=== PATIENT | male | born 1970 | race Caucasian/White ===

== ENCOUNTER 2022-11-25 16:09 | Inpatient (IN) | payer OTHER ==
[~2022-11-25] VITALS: Ht 180.3 cm; Wt 88.2 kg
[2022-11-25 16:00] VITALS: BP 129/68; PULSE 88; TEMP 98
--- NOTE | 2022-11-25 17:50 | NUR ---
PATIENT AND FAMILY ORIENTED TO ROOM. PATIENT ARRIVED WITH IV TO LEFT AC. PATIENT DENIES ANY PAIN AT THIS TIME. ASSESSMENT PERFORMED. INTAKE COMPLETE. PATIENT RESTING IN BED WITH NO FURTHER COMPLAINTS.
[2022-11-25 19:54] VITALS: BP 127/72; PULSE 90; TEMP 99.9
--- NOTE | 2022-11-25 20:00 | NUR ---
PT INDEPENDENT IN ROOM. CONNECTED IVF TO LAC SITE, INFUSING WITHOUT PROBLEM. IV ANTIBIOTIC INFUSING AT THIS TIME. PT DENIES NEED FOR PAIN MEDS. IS ON A CLEAR LIQUID DIET, NO PLAN FOR SURGERY AT THIS TIME.
[2022-11-26] VITALS (8 sets, daily range): BP systolic 110–131; BP diastolic 55–62; PULSE 77–101; TEMP 99.1–103.2
--- NOTE | 2022-11-26 01:10 | NUR ---
PT HAS LIQE=689.2, MEDICATED WITH TYLENOL 650MG PO AT THIS TIME.
--- NOTE | 2022-11-26 04:00 | NUR ---
TEMP=99.1. DENIES NEED FOR PAIN MEDS. IVF CONTINUE.
--- NOTE | 2022-11-26 05:49 | NUR ---
PT RESTING IN BED. REMAINS ON CLEAR LIQUIDS. IVF CONTINUE.
[2022-11-26 06:50] LABS: HEMOGLOBIN 12.1 g/dl (13.5-18.0); MEAN CELL VOLUME 95 fl (80.0-100.0); MEAN CORPUSCULAR HEMOGLOBIN 32 pg (27-31); MEAN CORPUSCULAR HGB CONC 33 g/dl (33.0-37.0); MEAN PLATELET VOLUME 10.6 fl (7.4-10.4); PLATELET COUNT 234 K/mm3 (130-400); RED BLOOD COUNT 3.82 M/mm3 (4.20-5.60); REDCELL DISTRIBUTION WIDTH-CV 11.6 % (11.5-14.5)
[2022-11-26 07:00] LABS: CALCIUM 8.4 mg/dL (8.4-10.2); CREATININE, serum 0.99 mg/dL (0.72-1.25); POTASSIUM 3.9 mmol/L (3.5-4.5)
--- NOTE | 2022-11-26 07:12 | NUR ---
Shift report received from retail shift leader RN.
[2022-11-26 07:15] LABS: HEMATOCRIT 36.3 % (42.0-52.0)
--- NOTE | 2022-11-26 07:26 | NUR ---
Pt awake and watching television while resting supine in bed. Pt denies nausea, abd. pain, and general pain/discomfort. IVF infusing to left ac site w/out sx of infiltration. Pt would like to shower today - bathing supplies placed in room. Pt denies additional needs. Call light is in his reach.
[2022-11-26 07:34] LABS: BAND 2 % (0-10); BASOPHIL 1 % (0-2); EOSINOPHIL 1 % (0-4); LYMPHOCYTE 11 % (20.0-51.0); NEUTROPHILS 83 % (42.0-75.2); PLATELET ESTIMATE NORMAL (NORMAL)
--- NOTE | 2022-11-26 07:41 | NUR ---
WBC 21. Dr. Martinez notified
--- NOTE | 2022-11-26 13:35 | NUR ---
Pt resting supine in bed. Significant other is at the bedside. Pt reports pain at 2-3/10. Denies nausea. Diet advanced to low fiber and he is waiting for his lunch to arrive. Pt showered this morning independently. He denies additional needs. Call light is in his reach.
--- NOTE | 2022-11-26 13:57 | NUR ---
SW presented to patient room to complete intake. Patient provides that he lives in [facility] alone. Next of kin or point of contact is his mother Merline Christianson [phone] or life partner Laura Solitario [phone]. Patient provides that he does not utilize DME, is independent with ADL's and does not utilize any HH services at this time. PCP is Dr. Johnson, and pharmacy is [facility] or [facility]. Patient states that he does not have anyone appointed as DPOA/HC and does not wish to appoint anyone at this time. DC plan is to return to is come upon discharge. SW will continue to follow. DC plan: home
--- NOTE | 2022-11-26 15:27 | NUR ---
Pt resting supine in bed. He reports feeling "warm". Temp 103.[address] Jason aware. Okay to give PRN Tylenol. Will continue to monitor.
--- NOTE | 2022-11-26 20:00 | NUR ---
PT IN BED, S.O AT BEDSIDE. IV ANTIBIOTIC CONNECTED TO LAC SITE, INFUSING WITHOUT PROBLEM. PT DENIES PAIN REQUIRING PAIN MEDS AT THIS TIME. INDEPENDENT IN ROOM. T=99.6.
--- NOTE | 2022-11-26 21:00 | NUR ---
PT DENIES NEEDS, RESTING IN BED.
--- NOTE | 2022-11-27 00:23 | NUR ---
PT HAS BXIK=897.6, TYLENOL 650MG GIVEN.
[2022-11-27 01:35] VITALS: TEMP 100.5
--- NOTE | 2022-11-27 01:35 | NUR ---
T=100.5. IV ANTIBIOTIC INFUSING WITHOUT PROBLEM.
--- NOTE | 2022-11-27 03:00 | NUR ---
Patient care, medication administration and nursing documentation occurred during a Daylight Savings Time Change.
[2022-11-27 03:51] VITALS: BP 113/65; PULSE 80; TEMP 98.1
--- NOTE | 2022-11-27 04:00 | NUR ---
TEMP=98.1.
[2022-11-27 06:54] LABS: BASO # 0.1 K/mm3 (0.0-0.2); BASO % 0.3 % (0.0-2.0); EOS # 0.1 K/mm3 (0.0-0.7); EOS % 0.3 % (0.0-4.0); GRAN # 15.9 K/mm3 (1.4-6.5); GRAN % 82.6 % (42.2-75.2); HEMATOCRIT 35.7 % (42.0-52.0); HEMOGLOBIN 12.1 g/dl (13.5-18.0); LYMPH # 1.6 K/mm3 (1.2-3.4); LYMPH % 8.2 % (20.0-51.0); MEAN CELL VOLUME 92 fl (80.0-100.0); MEAN CORPUSCULAR HEMOGLOBIN 31 pg (27-31); MEAN CORPUSCULAR HGB CONC 34 g/dl (33.0-37.0); MEAN PLATELET VOLUME 10.7 fl (7.4-10.4); MONO # 1.5 K/mm3 (0.1-0.6); MONO % 7.8 % (1.7-9.3); PLATELET COUNT 234 K/mm3 (130-400); RED BLOOD COUNT 3.87 M/mm3 (4.20-5.60); REDCELL DISTRIBUTION WIDTH-CV 11.5 % (11.5-14.5)
[2022-11-27 08:12] VITALS: BP 120/72; PULSE 82; TEMP 99.9
--- NOTE | 2022-11-27 08:54 | NUR ---
PATIENT ALERT AND ORIENTED X4. VSS. PATIENT HERE FOR RUPTURED APPY. PATIENT REPORTS PAIN 1/10 IN RLQ. UNASYN RUNNING IN LEFT AC. PATIENT TOLERATING LOW FIBER. REPORTS PASSING SOME GAS THIS AM. PATIENT REPORTS THE NEED TO HAVE A BM. WILL FOLLOW UP WITH THAT. CALL LIGHT IN REACH.
[2022-11-27 12:25] VITALS: BP 119/58; PULSE 84; TEMP 100.4
[2022-11-27 16:56] VITALS: BP 109/65; PULSE 78; TEMP 98.9
[2022-11-27 20:31] VITALS: BP 123/62; PULSE 96; TEMP 98.8
--- NOTE | 2022-11-27 21:00 | NUR ---
PT INDEPENDENT IN ROOM. IVF TO LAC INFUSING WITHOUT PROBLEM. DENIES PAIN. WILL BE NPO AT MIDNIGHT, PT AWARE.
[2022-11-28] VITALS (7 sets, daily range): BP systolic 96–117; BP diastolic 47–75; PULSE 59–94; TEMP 97.8–99
--- NOTE | 2022-11-28 01:30 | NUR ---
PT AWAKE, UP TO BATHROOM. LOW GRADE TEMPS THIS SHIFT. PT NPO.
[2022-11-28 06:43] LABS: BASO # 0.1 K/mm3 (0.0-0.2); BASO % 0.4 % (0.0-2.0); EOS # 0.2 K/mm3 (0.0-0.7); EOS % 1.2 % (0.0-4.0); GRAN # 10.3 K/mm3 (1.4-6.5); GRAN % 74.6 % (42.2-75.2); HEMOGLOBIN 11.7 g/dl (13.5-18.0); LYMPH % 14.5 % (20.0-51.0); MEAN CELL VOLUME 94 fl (80.0-100.0); MEAN CORPUSCULAR HEMOGLOBIN 31 pg (27-31); MEAN CORPUSCULAR HGB CONC 33 g/dl (33.0-37.0); MEAN PLATELET VOLUME 10.1 fl (7.4-10.4); MONO # 1.1 K/mm3 (0.1-0.6); PLATELET COUNT 233 K/mm3 (130-400); RED BLOOD COUNT 3.82 M/mm3 (4.20-5.60); REDCELL DISTRIBUTION WIDTH-CV 11.6 % (11.5-14.5)
[2022-11-28 06:47] LABS: HEMATOCRIT 35.8 % (42.0-52.0)
--- NOTE | 2022-11-28 08:22 | NUR ---
PT GOING TO IR FOR DRAIN PLACEMENT LATER THIS AM.
--- NOTE | 2022-11-28 15:08 | NUR ---
[employer] met with Patient to discuss diacharge planning. PAtient has no new concerns for SW and continues to intend on dishcarging home.
--- NOTE | 2022-11-28 21:55 | NUR ---
Patient A/Ox4, head to toe assessment done, see shift assessment, denies pain or discomfort, has been passing gas, IV infusing well, denies further needs, call light and personal items within reach, will continue to monitor.
[2022-11-29 03:43] VITALS: BP 115/64; PULSE 60; TEMP 98.4
--- NOTE | 2022-11-29 06:26 | NUR ---
Patient had an uneventful night, denies further needs, will report off to dayshift nurse.
[2022-11-29 07:04] LABS: HEMOGLOBIN 12.1 g/dl (13.5-18.0); MEAN CELL VOLUME 93 fl (80.0-100.0); MEAN CORPUSCULAR HEMOGLOBIN 32 pg (27-31); MEAN CORPUSCULAR HGB CONC 34 g/dl (33.0-37.0); MEAN PLATELET VOLUME 10.2 fl (7.4-10.4); PLATELET COUNT 247 K/mm3 (130-400); RED BLOOD COUNT 3.83 M/mm3 (4.20-5.60); REDCELL DISTRIBUTION WIDTH-CV 11.5 % (11.5-14.5)
[2022-11-29 07:05] LABS: HEMATOCRIT 35.7 % (42.0-52.0)
[2022-11-29 07:49] LABS: BAND 4 % (0-10); EOSINOPHIL 2 % (0-4); LYMPHOCYTE 24 % (20.0-51.0); NEUTROPHILS 62 % (42.0-75.2)
[2022-11-29 07:50] LABS: PLATELET ESTIMATE NORMAL (NORMAL)
[2022-11-29 08:46] VITALS: BP 128/78; PULSE 56; TEMP 98
[2022-11-29] MEDS ORDERED: AMOXICILLIN 8751 TAB PO (09:17)
--- NOTE | 2022-11-29 09:55 | NUR ---
PT RESTING IN BED. DR. FLORES IN TO SEE PT THIS AM. PLAN ON DISCHARGE LATER TODAY. PT VERBALIZED UNDERSTANDING.
--- NOTE | 2022-11-29 11:18 | NUR ---
REVIEWED DISCHARGE INSTRUCTIONS WITH PT. JOANN SOLICITED AND ANSWERED. PT LEFT UNIT AMBULATORY.
== END 2022-11-29 11:10 | disposition home or self-care (01) | DRG 373 ==
LOC: SURG 16:09
PROVIDERS: ADMIT Surgery
DX: K35.33 Acute appendicitis with perforation, localized peritonitis, and gangrene, with abscess (principal); M79.10 Myalgia, unspecified site
CPT/HCPCS: J0295; J7030; Q9967